=== PATIENT | male | born 1965 | race Caucasian/White ===

== ENCOUNTER 2019-10-24 15:43 | Observation (INO) | payer SELFPAY ==
[2019-10-24] VITALS (13 sets, daily range): BP systolic 124–164; BP diastolic 69–108; PULSE 70–115; RESP 13–22; TEMP 36.4–36.8; O2SAT 92–98; BMI 36.9
--- NOTE | 2019-10-24 15:59 | ECG_ITS ---
Measurements Intervals [place] Rate: 140 P: MT: 0 QRS: 74 QRSD: 90 T: 10 QT: 289 QTc: 442 POSSIBLE ATRIAL FLUTTER WITH RAPID VENTRICULAR RESPONSE No previous ECG available for comparison Electronically Signed On 10-24-2019 21:11:41 RN PARALEGAL by Laya De Dios M.D. [email or web address]
--- NOTE | 2019-10-24 16:00 | ED_ITS ---
Entered by Yanci Murillo, acting as scribe for Reza Jose DO HPI - Chest Pain General: Chief Complaint: Chest Pain Stated Complaint: cp Time Seen by Provider: 10/24/19 16:00 Source: patient Mode of arrival: ambulatory Limitations: no limitations History of Present Illness: HPI narrative: 54 yo male presents with fast heart rate. pt states this started 3 months ago but worsened last night. pt states he has had palpitations. pt denies any other symptoms at this time. MD complaint: chest pain Onset (ago): month(s) (3) Timing of current episode: constant and still present Prior episodes: No Onset: during rest Pain radiation: none Severity: mild Relieving factors: nothing Exacerbating factors: nothing Associated symptoms: Reports palpitations; Deny abdominal pain, dyspnea, fever(s), nausea or vomiting Treatment prior to arrival: none Review of Systems Const: Denies: fever, chills, body aches, change in appetite, fatigue or malaise ENMT: Denies: throat pain, ear pain, nasal discharge or nasal congestion Card: Reports: palpitations Resp: Denies: shortness of breath, productive cough or non-productive cough GI: Denies: abdominal pain, nausea, vomiting, vomiting blood, coffee grounds in vomit, diarrhea, constipation, bloating, blood in stool or black tarry stool : Denies: flank pain, painful urination, urinary frequency or urinary urgency Skin/Breast: Denies: rash or itching PFSH ED PFSH: Social History Smoking and tobacco status: former smoker Physical Exam Const: COMMON NORMALS: no apparent distress GENERAL APPEARANCE: cooperative and comfortable ORIENTATION/CONSCIOUSNESS: Yes awake, Yes oriented to person, Yes oriented to place and Yes oriented to time HENMT: COMMON NORMALS: normocephalic, head/scalp atraumatic, hearing grossly normal bilaterally, external ears normal, EAC's normal, TM's normal bilaterally, nasal mucous membranes and turbinates normal, moist oral mucous membranes and oropharynx normal HEAD & SCALP: normocephalic and atraumatic NOSE: nasal mucous membranes and turbinates normal EXTERNAL EAR: Yes external ears normal EXTERNAL AUDITORY CANAL: EAC's normal TYMPANIC MEMBRANE: TM's normal bilaterally Eye: COMMON NORMALS: PERRL, EOMs intact bilaterally, conjunctivae normal and no scleral icterus CONJUNCTIVA: Yes conjunctivae normal PUPIL: Yes PERRL Neck/C-Spine: COMMON NORMALS: full ROM, no lymphadenopathy, supple and no JVD Lymph: LYMPHATIC: no lymphadenopathy noted and no lymphedema noted Resp: COMMON NORMALS: normal respiratory effort, no retractions, no use of accessory muscles and clear to auscultation bilaterally AUSCULTATION: clear to auscultation bilaterally Cardio: COMMON NORMALS: no JVD GI: COMMON NORMALS: soft to palpation and no hepatosplenomegaly AUSCULTATION: Yes normoactive bowel sounds PALPATION: Yes soft, No tender, No guarding and Yes no hepatosplenomegaly Extremity: COMMON NORMALS: normal to inspection, normal capillary refill, no clubbing, cyanosis or edema, no calf tenderness and no pedal edema Neuro: SENSORIUM/ORIENTATION: Yes oriented to person, Yes oriented to place and Yes oriented to time Skin: COMMON NORMALS: no rashes or lesions noted GENERAL SKIN EXAM: no rashes or lesions noted Course ED course: Discussed with Dr. Leonard. Patient has new onset A. fib with rapid ventricular response. He is dependent on IV diltiazem now to control rate he is not yet converted. Organ to go ahead and admit him for rate control on the IV Cardizem further work-up and medication adjustments for the new onset A. fib. Vital Signs: Vital signs: Vital Signs Temperature 97.9 F 10/24/19 15:48 Pulse Rate 109 H 10/24/19 17:16 Respiratory Rate 14 10/24/19 17:16 Blood Pressure 124/69 10/24/19 17:16 Pulse Oximetry 97 10/24/19 17:16 MDM - Chest Pain Lab Data: Labs: Lab Results 10/24/19 10/24/19 10/24/19 Range/Units 16:08 16:08 16:08 WBC 8.8 (4.0-10.0) 10^3/ uL RBC 5.64 H (4.1-5.3) 10^6/u L Hgb 15.7 (11.7-16.6) g/dL Hct 46.6 (42.0-52.0) % MCV 82.6 (80-94) fL MCH 27.8 L (28.0-34.0) pg MCHC 33.7 (30.0-36.0) g/dL RDW 13.1 (12.1-15.1) % Plt Count 285 (130-400) 10^3/c mm MPV 10.0 (7.4-10.4) fL Neut % (Auto) 44.8 % Lymph % (Auto) 43.0 % [place] % (Auto) 9.5 % Eos % (Auto) 1.9 % Baso % (Auto) 0.5 % Neut # (Auto) 4.0 (1.8-7.7) 10^3/u L Lymph # (Auto) 3.8 (0.8-4.8) 10^3/u L [place] # (Auto) 0.8 (0.2-0.9) 10^3/u L Eos # (Auto) 0.2 (0.0-0.8) 10^3/u L Baso # (Auto) 0.0 (0.0-0.1) 10^3/u L Nucleated RBC % (a uto) 0 % Nucleated RBCs # 0.0 /100WBC PT 13.20 (10.5-13.3) SECO NDS INR 1.00 (0.8-1.2) APTT 24.9 (23.9-36.7) SECO NDS D-Dimer 0.10 (0-0.59) ug/mIFE U Sodium 139 (136-145) mmol/L Potassium 4.6 (3.5-5.1) mmol/L Chloride 102 (98-107) mmol/L Carbon Dioxide 22 (22-29) mmol/L Anion Gap 19.6 H (5-19) BUN 17 (6-20) mg/dL Creatinine 0.9 (0.7-1.2) mg/dL GFR Calculation 87.6 L (90-130) mL/min Glucose 148 H (65-115) mg/dL Calcium 10.4 (8.5-10.5) mg/dL Magnesium 2.1 (1.7-2.3) mg/dL Total Bilirubin 0.7 (0.15-1.2) mg/dL AST 23 (0-40) U/L ALT 27 (0-41) U/L Alkaline Phosphata se 66 (40-130) IU/L Troponin T Baselin e (0-15) ng/mL Total Protein 7.2 (6.6-8.7) g/dL Albumin 4.4 (3.5-5.2) g/dL Globulin 2.8 (1.3-4.6) g/dL TSH 1.60 (0.27-4.20) uIU/ mL 10/24/19 Range/Units 16:08 WBC (4.0-10.0) 10^3/ uL RBC (4.1-5.3) 10^6/u L Hgb (11.7-16.6) g/dL Hct (42.0-52.0) % MCV (80-94) fL MCH (28.0-34.0) pg MCHC (30.0-36.0) g/dL RDW (12.1-15.1) % Plt Count (130-400) 10^3/c mm MPV (7.4-10.4) fL Neut % (Auto) % Lymph % (Auto) % [place] % (Auto) % Eos % (Auto) % Baso % (Auto) % Neut # (Auto) (1.8-7.7) 10^3/u L Lymph # (Auto) (0.8-4.8) 10^3/u L [place] # (Auto) (0.2-0.9) 10^3/u L Eos # (Auto) (0.0-0.8) 10^3/u L Baso # (Auto) (0.0-0.1) 10^3/u L Nucleated RBC % (a uto) % Nucleated RBCs # /100WBC PT (10.5-13.3) SECO NDS INR (0.8-1.2) APTT (23.9-36.7) SECO NDS D-Dimer (0-0.59) ug/mIFE U Sodium (136-145) mmol/L Potassium (3.5-5.1) mmol/L Chloride (98-107) mmol/L Carbon Dioxide (22-29) mmol/L Anion Gap (5-19) BUN (6-20) mg/dL Creatinine (0.7-1.2) mg/dL GFR Calculation (90-130) mL/min Glucose (65-115) mg/dL Calcium (8.5-10.5) mg/dL Magnesium (1.7-2.3) mg/dL Total Bilirubin (0.15-1.2) mg/dL AST (0-40) U/L ALT (0-41) U/L Alkaline Phosphata se (40-130) IU/L Troponin T Baselin e 14 (0-15) ng/mL Total Protein (6.6-8.7) g/dL Albumin (3.5-5.2) g/dL Globulin (1.3-4.6) g/dL TSH (0.27-4.20) uIU/ mL Imaging Data^: CXR: Radiologist's impression: [address] [address] XRay Report Signed Patient: Mina Silva #: [id number] : 1965Acct#:[id number] Age/Sex: 54 / MADM Date: 10/24/19 Loc: ERRoom/Bed: Attending Dr: Ordering Provider/Ordering MD: Vaughn Ingram NP Date of Service: 10/24/19 Procedure(s): XR chest 1V portable 40616 Accession Number(s): [id number] Report Number: [id number] PROCEDURE INFORMATION: Exam: XR Chest, 1 View Exam date and time: 10/24/2019 4:00 PM Age: 54 years old Clinical indication: Chest pain; Type not specified; Additional info: Cp TECHNIQUE: Imaging protocol: XR of the chest Views: 1 view. COMPARISON: No relevant prior studies available. FINDINGS: Lungs: Unremarkable. No consolidation. Punctate calcified granulomas and mild basilar fibrosis versus volume loss with vascular crowding is noted. The vascularity is within normal limits. Pleural space: Unremarkable. No pleural effusion. No pneumothorax. Heart/Mediastinum: There is cardiomegaly. Bones/joints: No acute abnormality. XR/XR chest 1V portable [id number] IMPRESSION: No acute findings. Dictated By:Katelynn Leyva Signed By:Aubrey Leyva Date/Time:10/24/19 8062 Discharge Plan Discharge Prescriptions: No Action pioglitazone 15 mg tablet 15 mg PO DAILY RF: 0 atorvastatin 20 mg tablet 20 mg PO DAILY RF: 0 metformin 1,000 mg tablet 1,000 mg PO BID RF: 0 glimepiride 4 mg tablet 4 mg PO BID RF: 0 lorazepam 1 mg tablet 1 mg PO TID PRN (Reason: Anxiety) RF: 0 Coding Level of Care Code ED Hot Roll Laminator for Chg Fwd Exam Comprehensive The documentation recorded by the Chidi sneed Bridget Annette, accurately reflects the service I personally performed and the decisions made by Rebeca little Curtis L, Oct 24, 2019 15:43
[2019-10-24 16:25] LABS: Basophils % 0.5 %; Eosinophils # 0.2 10^3/uL (0.0-0.8); Eosinophils % 1.9 %; Hematocrit 46.6 % (42.0-52.0); Hemoglobin 15.7 g/dL (11.7-16.6); Lymphocytes # 3.8 10^3/uL (0.8-4.8); Mean Corpuscular HGB Conc 33.7 g/dL (30.0-36.0); Mean Corpuscular Hemoglobin 27.8 pg (28.0-34.0); Mean Corpuscular Volume 82.6 fL (80-94); Monocytes # 0.8 10^3/uL (0.2-0.9); Monocytes % 9.5 %; Neutrophils % 44.8 %; Nucleated Red Blood Cells % 0 %; Platelet Count 285 10^3/cmm (130-400); Red Blood Count 5.64 10^6/uL (4.1-5.3); Red Cell Distribution Width 13.1 % (12.1-15.1); White Blood Count 8.8 10^3/uL (4.0-10.0)
[2019-10-24 16:40] LABS: Troponin(5th) Baseline 14 ng/mL (0-15)
[2019-10-24 16:47] LABS: Alanine Aminotransferase 27 U/L (0-41); Albumin Level 4.4 g/dL (3.5-5.2); Alkaline Phosphatase 66 IU/L (40-130); Anion Gap 19.6 (5-19); Aspartate Amino Transferase 23 U/L (0-40); Blood Urea Nitrogen 17 mg/dL (6-20); Calcium 10.4 mg/dL (8.5-10.5); Carbon Dioxide 22 mmol/L (22-29); Chloride 102 mmol/L (98-107); Globulin 2.8 g/dL (1.3-4.6); Glomerular Filtration Rate 87.6 mL/min (90-130); Glucose 148 mg/dL (65-115); Magnesium 2.1 mg/dL (1.7-2.3); Potassium 4.6 mmol/L (3.5-5.1); Sodium 139 mmol/L (136-145); Total Bilirubin 0.7 mg/dL (0.15-1.2); Total Protein 7.2 g/dL (6.6-8.7)
[2019-10-24 16:48] LABS: Partial Thromboplastin Time 24.9 SECONDS (23.9-36.7)
[2019-10-24 18:32] LABS: Troponin 5 2HR 14.91 ng/mL (0-15); Troponin 5 2HR Delta 0.91 ABS# (0-10)
--- NOTE | 2019-10-24 18:38 | P.HP_ITS ---
Providers/Chief Complaint Admitting Physician: Nataliia Leonard MD Primary Care Provider: Jacqueline Shira Chief Complaint: palpitations, chest pressure History of Present Illness Mina Silva is a 54 year old male with PMHx of NIDDM type II, Morbid obesity, Hyperlipidemia, presents with complaints of ongoing palpitations and chest pressure for the past 2 months. Patient states that he has had once but has noticed this more frequently over the past 2 months with increased palpitations and chest pressure. He has also noticed that his episodes are lasting longer, about 3 to 4 hours at a time and are occurring more frequently. Episodes will typically spontaneously resolve. He has no prior diagnosis of arrhythmia including A. fib. He has some chronic shortness of breath with exertion which he attributes to his weight. He denies any diaphoresis, syncope, increased lower extremity edema, nausea/vomiting, cough, fever/chills, abdominal pain, changes in his urination or bowel habits. He is not insulin-dependent. Has had prior treadmill stress testing which was negative in 2012. In between his episodes he is typically asymptomatic. He was found to be in A. fib with RVR on evaluation in the ER with heart rates in the 140 range. He received a 20 mg bolus of Cardizem and drip is currently running at 10 mg/hr. He feels much better and his heart rate is in the 70s though rhythm remains irregular. Labs are unremarkable including CBC, chemistry, troponin, TSH, noted blood sugar of 148. Chest x-ray is negative. EKG is reporeted as atrial flutter with heart rate in the 140s. He will be admitted to ICU as a CSU overflow at this time for continued Cardizem drip. I discussed initiation of oral Cardizem to try to wean him off the drip and potential need for anticoagulation depending on echo results. He is agreeable to care plan. Review of Systems Const: Denies: fever, chills, change in appetite or fatigue Eyes: Denies: change in vision ENMT: Denies: painful swallowing or dry mouth Card: Reports: palpitations, shortness of breath on exertion and other (chest pressure); Denies: chest pain, swelling of feet/ankles, lightheadedness or syncope Resp: Denies: shortness of breath GI: Denies: abdominal pain, nausea, vomiting, vomiting blood or blood in stool : Denies: painful urination, urinary frequency or blood in urine Musc: Denies: back pain Skin/Breast: Denies: rash Neuro: Denies: numbness in extremities or weakness in extremities Psych: Denies: anxiety Medications/Allergies Home Medications Medication Instructions Recorded Confirmed Last Taken Type atorvastatin 20 mg PO DAILY 10/24/19 10/24/19 10/23/19 History glimepiride 4 mg PO BID 10/24/19 10/24/19 10/24/19 History lorazepam 1 mg PO TID PRN 10/24/19 10/24/19 Unknown History metformin 1,000 mg PO BID 10/24/19 10/24/19 10/24/19 History pioglitazone 15 mg PO DAILY 10/24/19 10/24/19 10/24/19 History Allergies Allergy/AdvReac Type Severity Reaction Status Date / Time Penicillins Allergy ADR-Itching Verified 10/24/19 15:52 PFSH Acute PFSH: Medical History HTN (hypertension) Hyperlipidemia Morbid obesity Surgical History H/O eye surgery done in childhood History of left hip replacement Family History (Updated 10/24/19 @ 18:49 by Nataliia Leonard MD) Mother CAD (coronary artery disease) Father Atrial fibrillation multiple family members on paternal side Social History (Updated 10/24/19 @ 18:49 by Nataliia Leonard MD) Smoking and tobacco status: former smoker Quit status (tobacco): has quit using tobacco Year quit tobacco: 01/2018 Alcohol intake: current Alcohol intake frequency: holidays/special occasions only Substance/Drug Use: never Vitals/I&O/Wt Last Vital Signs Temp 97.9 F 10/24/19 15:48 Pulse 76 10/24/19 18:00 Resp 15 10/24/19 18:00 BP 124/75 10/24/19 18:00 Pulse Ox 98 10/24/19 18:00 10/24/19 10/24/19 10/24/19 06:59 14:59 22:59 Intake Total 1.333 / 1.333 Balance 1.333 / 1.333 Weight last 48 hrs Weight 127.006 kg Physical Exam Const: COMMON NORMALS: no apparent distress and oriented x3 GENERAL APPEARANCE: cooperative and comfortable; not in distress and not ill appearing NUTRITIONAL APPEARANCE: obese morbidly obese ORIENTATION/CONSCIOUSNESS: Yes awake HENMT: COMMON NORMALS: normocephalic, head/scalp atraumatic, hearing grossly normal bilaterally and moist oral mucous membranes HEAD & SCALP: normocephalic and atraumatic Eye: COMMON NORMALS: PERRL, EOMs intact bilaterally and conjunctivae normal CONJUNCTIVA: Yes conjunctivae normal PUPIL: Yes PERRL Neck/C-Spine: COMMON NORMALS: full ROM GENERAL: Yes normal visual inspection and Yes trachea midline Resp: COMMON NORMALS: normal respiratory effort, no retractions, no use of accessory muscles and clear to auscultation bilaterally EFFORT & INSPECTION: Yes able to speak in complete sentences, Yes symmetric chest movement and No tachypneic AUSCULTATION: clear to auscultation bilaterally Cardio: COMMON NORMALS: regular rate, regular rhythm, S1 normal heart sound, S2 normal heart sound and no murmurs RATE: regular rate RHYTHM: abnormal rhythm irregularly irregular HEART SOUNDS: S1 normal and S2 normal GI: COMMON NORMALS: normal to inspection, nondistended, normoactive bowel marcia nds, soft to palpation and non-tender INSPECTION: Yes central obesity PALPATION: Yes soft Extremity: COMMON NORMALS: normal to inspection, full ROM and no clubbing, cyanosis or edema; negative for no pedal edema Neuro: COMMON NORMALS: oriented x3, moves all extremities, no focal motor deficits and no sensory deficits noted Psych: COMMON NORMALS: mental status grossly normal, thought process normal, cooperative, affect normal and speech normal SPEECH: Yes normal speech THOUGHT PROCESS: normal thought process Skin: COMMON NORMALS: no rashes or lesions noted, no jaundice, no petechiae and no mottling GENERAL SKIN EXAM: no rashes or lesions noted Data : 10/24/19 16:08 10/24/19 16:08 A&P Assessment and plan (1) Atrial fibrillation with RVR: -new onset, symptomatic as reported by patient (palpitations, chest pressure) -rate controlled currently though rhythm still irregular -on Cardizem drip, received 20 mg bolus -telemetry monitoring -seems to have responded well to cardizem so will start on oral as well to wean off drip -Echo ordered, no baseline on record -may need anticoagulation but will wait on Echo -K, TSH wnl, check Mg -had negative treadmill stress test in 2013 Status: Acute Code(s): I48.91 - Unspecified atrial fibrillation (2) Non-insulin dependent type 2 diabetes mellitus: -check A1c in AM -Accuchecks, ISS, hypoglycemia precautions -hold metformin, pioglitazone, glimepiride -diabetic diet as tolerated Status: Acute Code(s): E11.9 - Type 2 diabetes mellitus without complications (3) Hyperlipidemia: -check lipid panel in AM -resume statin Status: Acute Qualifiers: Hyperlipidemia type: unspecified Qualified Code(s): E78.5 - Hyperlipidemia, unspecified Code(s): E78.5 - Hyperlipidemia, unspecified (4) Morbid obesity: -BMI-37 kg/m2 Status: Acute Code(s): E66.01 - Morbid (severe) obesity due to excess calories Additional A&P Information -DVT ppx with Lovenox -Dispo: home -Code status: FULL code -CSU overflow Attestations Medical Necessity Statement*: Mina Silva's hospital stay will be less than 2 midnights for management of new onset atrial fibrillation, currently on cardizem drip. Time Spent in Patient Care: Greater than 35 minutes (>than 50% of time spe nt in counselling and/or direct pt care on unit) . Coding Level of Care Code Acute Childcare Center Administrator for Jose Whatley Diagnoses Atrial fibrillation with RVR I48.91 Non-insulin dependent type 2 diabetes mellitus E11.9 Hyperlipidemia E78.5 Hyperlipidemia type: unspecified Morbid obesity E66.01
--- NOTE | 2019-10-24 18:39 | USCV_ITS ---
Mina Silva Age: 54 Gender: M : 1965 Exam Date: 10/24/2019 19:27 Ordering Phys: Nataliia Leonard MD Technologist: Lacy Tellez [place] [facility] [place]: afib BP: 164 / 97 HR: 74 Rhythm: Sinus Technical Quality: Adequate MEASUREMENTS (Male / Female) Normal Values 2D ECHO LV Diastolic Diameter PLAX 2.5 cm 4.2 - 5.9 / 3.9 - 5.3 cm LV Systolic Diameter PLAX 2.1 cm LV Chamber Size 4.2 cm IVS Diastolic Thickness 1.7 cm 0.6 - 1.0 / 0.6 - 0.9 cm IVS Systolic Thickness 2.2 cm LVPW Diastolic Thickness 2.1 cm 0.6 - 1.0 / 0.6 - 0.9 cm LVPW Systolic Thickness 2.6 cm RV Chamber Size 2.5 cm LVOT Diameter 2.1 cm LV Ejection Fraction 2D Teich 36.0 % LV Ejection Fraction MOD 2C 62.0 % LV Ejection Fraction 2C AL 63.4 % LA Diameter 4.6 cm LA Width 3.2 cm LA Height 5.9 cm RA Width 2.7 cm RA Height 5.0 cm Aorta at Sinotubular Diameter 3.2 cm M-MODE LV Diastolic Diameter MM 5.2 cm 4.2 - 5.9 / 3.9 - 5.3 cm LV Systolic Diameter MM 3.2 cm LV Ejection Fraction MM Teich 67.5 % IVS Diastolic Thickness MM 0.9 cm 0.6 - 1.0 / 0.6 - 0.9 cm IVS Systolic Thickness MM 1.1 cm LVPW Diastolic Thickness MM 1.1 cm 0.6 - 1.0 / 0.6 - 0.9 cm LVPW Systolic Thickness MM 1.3 cm Aortic Annulus Diameter 3.4 cm LA Ao Ratio MM 1.4 MV E Point Septal Separation 0.7 cm DOPPLER AV Peak Velocity 215.0 cm/s LVOT Peak Velocity 140.0 cm/s AV Area Cont Eq vti 2.5 cm squared AV Area Cont Eq pk 2.2 cm squared MV Area PHT 3.1 cm squared Mitral E to A Ratio 2.0 MV E' Velocity 12.0 cm/s Mitral E to MV E' Ratio 8.2 Mitral E to LV E' Lateral Ratio 8.3 Mitral E to LV E' Septal Ratio 8.1 TR Peak Velocity 235.0 cm/s TR Peak Gradient 22.1 mmHg TV Peak E Velocity 76.0 cm/s Right Atrial Pressure 3.0 mmHg Pulmonary Artery Systolic Pressu 25.1 mmHg PV Peak Velocity 77.0 cm/s RV Acceleration Time 0.2 s RV Ejection Time 0.3 s RV AcT/ET 0.6 FINDINGS Left Ventricle Normal left ventricular size and systolic function, EF 63 %. No regional wall motion abnormalities. Moderate left ventricular hypertrophy. Right Ventricle Possibly of normal size and ejection fraction Right Atrium Could not be visualized well Left Atrium Mildly dilated Mitral Valve No gross abnormalities noted Aortic Valve No gross abnormalities noted Tricuspid Valve Not visualized well.trace tricuspid valve regurgitation. Pulmonic Valve Not visualized well Pericardium Normal pericardium without effusion. Aorta Normal ascending aorta dimension. CONCLUSIONS Normal left ventricular size and systolic function, EF 63 %. No regional wall motion abnormalities. Moderate left ventricular hypertrophy. Mildly dilated left atrium No pericardial effusion Trace of tricuspid regurgitation Possibly normal pulmonary artery peak systolic pressure Technically difficult study because of the poor ultrasonic window. Dr Maddi Nation MD FACC (Electronically Signed) Final Date: 25 October 2019 13:21 S
[2019-10-24 18:50] LABS: Glucose Point of Care 95 mg/dL (70-110)
[2019-10-24] MEDS: dilTIAZem 60 mg Tablet PO (19:37)
[2019-10-24] MEDS: enoxaparin 40 mg/0.4 mL Syringe SUBCUT (19:37)
[2019-10-24] MEDS: atorvastatin 40 mg Tablet 20 MG PO (21:03)
[2019-10-24] MEDS: acetaminophen 325 mg Tablet 650 MG PO (21:04)
[2019-10-24] MEDS: LORazepam 1 mg Tablet PO (21:04)
[2019-10-24 22:17] LABS: Troponin 5 6HR 17.67 ng/mL (0-15); Troponin 5 6HR Delta 3.67 ng/L (0-12)
[2019-10-25] VITALS (10 sets, daily range): BP systolic 101–138; BP diastolic 53–90; PULSE 56–73; RESP 12–25; TEMP 36.9–37.2; O2SAT 92–97
[2019-10-25 00:18] LABS: Glucose Point of Care 180 mg/dL (70-110)
[2019-10-25] MEDS: dilTIAZem 60 mg Tablet PO ×3 (00:46→12:29)
[2019-10-25 04:19] LABS: Estmated Average Glucose 169; Hemoglobin A1C 7.5 % (4.0-6.0)
[2019-10-25 04:40] LABS: Anion Gap 15.2 (5-19); Blood Urea Nitrogen 18 mg/dL (6-20); Calcium 9.5 mg/dL (8.5-10.5); Carbon Dioxide 26 mmol/L (22-29); Chloride 101 mmol/L (98-107); Glomerular Filtration Rate 100.4 mL/min (90-130); Glucose 162 mg/dL (65-115); Osmolality Calculated 286 mOsm/kg (285-295); Potassium 4.2 mmol/L (3.5-5.1); Sodium 138 mmol/L (136-145)
[2019-10-25 04:41] LABS: Chol HDL Ratio 3.23 mg/dL (1.0-5.00); Cholesterol 152 mg/dL (0-200); HDL Cholesterol 47 mg/dL (60-100); LDL Cholesterol Calculated 68 mg/dL (50-129); LDL HDL Ratio 1.45 RATIO (0.00-3.22); Magnesium 2.1 mg/dL (1.7-2.3); Triglycerides 183 mg/dL (0-150)
--- NOTE | 2019-10-25 10:17 | PC.CHAP ---
Pastoral Care Encounter/Spiritual Assessment Type of Contact [] Declined conference manager visit [] Patient/Family/Request visit [] Outpatient visit [] Follow-up visit [] Physician referral [] Code/Alert [x] Routine visit [] Staff referral [] Actively dying [] Patient sleeping [] Family support [] [] Out of room [] Palliative care [] [] Receiving care in room [] Pre-surgical visit [] Trauma [] Long length of stay [x] ICU visit [] Other: Relational/Emotional Strength [] Patient feels connected with others/family/visitors/staff [] Distress [] Loneliness/isolation [] Abandonment Spirituality of Patient [x] Person of Tonie [x] Attends Christian of their Tonie [x] Believes in Prayer [x] Reads Bible or Confucianism materials [] There are Spiritual issues to be addressed Director Medical Surgical Interventions [x] Prayer [] Active listening [] Non-anxious presence [] Spiritual/emotional support [] Crisis/trauma care [] Spiritual counseling [] Bereavement support [] Provided bereavement packet [] Provided Bible/devotional materials [] Provided toy/stuffed animal, coloring book to patient or family member [] Provided Communion [] Anointing/[place] [] Salvation [x] Completed spiritual assessment [] Other: Impact on Illness or Injury [] Angry [] Fearful [] Anxious [] Often cries [] Exhaustion [] Unable to work [] Unable to attend anabaptism [] Unable to walk/stand [] Unable to read [] Unable to drive [] Unable to eat/drink [] Unable to sleep [] Unable to be with family [] Patient intubated [] Other: Summary Patient realizes needs to make some physical changes in live style. More exercise, to bring weight down. Time spent with patient 20 min
[2019-10-25 11:14] LABS: Glucose Point of Care 198 mg/dL (70-110)
[2019-10-25 11:35] LABS: Glucose Point of Care 221 mg/dL (70-110)
--- NOTE | 2019-10-25 14:02 | PM.DCS ---
Discharge Providers Date of Admission: 10/24/19 17:10 Date of Discharge: October 25, 2019 Attending Provider at Admission: Nataliia Leonard MD Attending Provider at Discharge: Nataliia Leonard MD Primary Care Provider: Lukas Goyal DO Diagnoses at Discharge Discharge Diagnosis (1) Atrial fibrillation with RVR: Status: Resolved Problem details: -new onset, symptomatic as reported by patient (palpitations, chest pressure) -rate controlled currently and converted to NSR overnight -off Cardizem drip, received 20 mg bolus -telemetry monitoring -seems to have responded well to cardizem so will start on oral as well to wean off drip -Echo: EF=60%, no RWMA, moderate LVH, trace TR, mildly dilated LA, no baseline on record -[id number] score of 1 for DM; discussed anticoagulation vs. aspirin and patient chose aspirin -K, TSH, Mg wnl -had negative treadmill stress test in 2012 (2) Non-insulin dependent type 2 diabetes mellitus: Status: Chronic Problem details: -A1c-7.5 -Accuchecks, ISS, hypoglycemia precautions -hold metformin, pioglitazone, glimepiride -diabetic diet as tolerated (3) Hyperlipidemia: Status: Chronic Problem details: -noted lipid panel -continue statin Qualifiers: Hyperlipidemia type: unspecified Qualified Code(s): E78.5 - Hyperlipidemia, unspecified (4) Morbid obesity: Status: Chronic Problem details: -BMI-37 kg/m2 Reason for Visit Reason for Visit: Reason For Visit: palpitations, chest pressure Hospital Course Hospital Course: Patient was admitted to ICU as CSU overflow and continued on cardizem drip that had been started in ED given atrial fibrillation with RVR. He converted to sinus rhythm overnight and has remained regular and rate controlled with discontinuation of cardizem drip. He has been started on oral cardizem which he seems to be tolerating well. Echo has been done as reported above. [id number] score is 1 given hx of DM and we have discussed anticoagulation vs. aspirin as options; he has chosen aspirin which is prescribed. He has been hemodynamically stable, afebrile, ambulatory, tolerating oral intake without difficulty and is now asymptomatic. He likely has RAFFY so I have requested sleep study on discharge for further evaluation. He will need follow up with primary care provider. He is advised to seek medical attention immediately if symptoms return. Discharge Summary: -Patient to follow up with primary care provider within 1 week. Physical Exam Const: COMMON NORMALS: no apparent distress and oriented x3 GENERAL APPEARANCE: cooperative and comfortable; not in distress and not ill appearing NUTRITIONAL APPEARANCE: obese morbidly obese ORIENTATION/CONSCIOUSNESS: Yes awake HENMT: COMMON NORMALS: normocephalic, head/scalp atraumatic, hearing grossly normal bilaterally and moist oral mucous membranes HEAD & SCALP: normocephalic and atraumatic Eye: COMMON NORMALS: PERRL, EOMs intact bilaterally and conjunctivae normal CONJUNCTIVA: Yes conjunctivae normal PUPIL: Yes PERRL Neck/C-Spine: COMMON NORMALS: full ROM GENERAL: Yes normal visual inspection and Yes trachea midline Resp: COMMON NORMALS: normal respiratory effort, no retractions, no use of accessory muscles and clear to auscultation bilaterally EFFORT & INSPECTION: Yes able to speak in complete sentences, Yes symmetric chest movement and No tachypneic AUSCULTATION: clear to auscultation bilaterally Cardio: COMMON NORMALS: regular rate, regular rhythm, S1 normal heart sound, S2 normal heart sound and no murmurs RATE: regular rate RHYTHM: regular rhythm HEART SOUNDS: S1 normal and S2 normal GI: COMMON NORMALS: normal to inspection, nondistended, normoactive bowel sounds, soft to palpation and non-tender INSPECTION: Yes central obesity PALPATION: Yes soft Extremity: COMMON NORMALS: normal to inspection, full ROM and no clubbing, cyanosis or edema; negative for no pedal edema Neuro: COMMON NORMALS: oriented x3, moves all extremities, no focal motor deficits and no sensory deficits noted Psych: COMMON NORMALS: mental status grossly normal, thought process normal, cooperative, affect normal and speech normal SPEECH: Yes normal speech THOUGHT PROCESS: normal thought process Skin: COMMON NORMALS: no rashes or lesions noted, no jaundice, no petechiae and no mottling GENERAL SKIN EXAM: no rashes or lesions noted Discharge Data Data Completed and Pending: Completed Studies During Hospitalization Category Date Time Status XR chest 1V john ble [id number] Stat Exams 10/24/19 15:59 Completed CV echo complete* [id number] Routine Ultrasound 10/24/19 18:39 Completed Labs from last 24 hours 10/25/19 10/25/19 10/25/19 11:28 08:05 03:46 WBC RBC Hgb Hct MCV MCH MCHC RDW Plt Count MPV Neut % (Auto) Lymph % (Auto) [place] % (Auto) Eos % (Auto) Baso % (Auto) Neut # (Auto) Lymph # (Auto) Sutton # (Auto) Eos # (Auto) Baso # (Auto) Nucleated RBC % (a uto) Nucleated RBCs # PT INR APTT D-Dimer Sodium Potassium Chloride Carbon Dioxide Anion Gap BUN Creatinine GFR Calculation Glucose POC Glucose 221 198 Estimat Average Gl ucose Hemoglobin A1c Calculated Osmolal ity Calcium Magnesium Total Bilirubin AST ALT Alkaline Phosphata se Troponin I 6 Hour Troponin I Hi Sens Del Troponin T Baselin e Troponin T 120 Min [place] Troponin T Total Protein Albumin Globulin Triglycerides 183 H Cholesterol 152 LDL Cholesterol, C alc 68 HDL Cholesterol 47 L LDL/HDL Ratio 1.45 Cholesterol/HDL Ra wes 3.23 TSH 10/25/19 10/25/19 10/25/19 03:46 03:46 03:46 WBC RBC Hgb Hct MCV MCH MCHC RDW Plt Count MPV Neut % (Auto) Lymph % (Auto) Sutton % (Auto) Eos % (Auto) Baso % (Auto) Neut # (Auto) Lymph # (Auto) Sutton # (Auto) Eos # (Auto) Baso # (Auto) Nucleated RBC % (a uto) Nucleated RBCs # PT INR APTT D-Dimer Sodium 138 Potassium 4.2 Chloride 101 Carbon Dioxide 26 Anion Gap 15.2 BUN 18 Creatinine 0.8 GFR Calculation 100.4 Glucose 162 H POC Glucose Estimat Average Gl ucose 169 Hemoglobin A1c 7.5 H Calculated Osmolal ity 286 Calcium 9.5 Magnesium 2.1 Total Bilirubin AST ALT Alkaline Phosphata se Troponin I 6 Hour Troponin I Hi Sens Del Troponin T Baselin e Troponin T 120 Min [place] Troponin T Total Protein Albumin Globulin Triglycerides Cholesterol LDL Cholesterol, C alc HDL Cholesterol LDL/HDL Ratio Cholesterol/HDL Ra wes TSH 10/24/19 10/24/19 10/24/19 21:54 21:00 18:46 WBC RBC Hgb Hct MCV MCH MCHC RDW Plt Count MPV Neut % (Auto) Lymph % (Auto) Sutton % (Auto) Eos % (Auto) Baso % (Auto) Neut # (Auto) Lymph # (Auto) Sutton # (Auto) Eos # (Auto) Baso # (Auto) Nucleated RBC % (a uto) Nucleated RBCs # PT INR APTT D-Dimer Sodium Potassium Chloride Carbon Dioxide Anion Gap BUN Creatinine GFR Calculation Glucose POC Glucose 180 95 Estimat Average Gl ucose Hemoglobin A1c Calculated Osmolal ity Calcium Magnesium Total Bilirubin AST ALT Alkaline Phosphata se Troponin I 6 Hour 17.67 H Troponin I Hi Sens Del 3.67 Troponin T Baselin e Troponin T 120 Min [place] Troponin T Total Protein Albumin Globulin Triglycerides Cholesterol LDL Cholesterol, C alc HDL Cholesterol LDL/HDL Ratio Cholesterol/HDL Ra wes TSH 10/24/19 10/24/19 10/24/19 18:07 16:08 16:08 WBC RBC Hgb Hct MCV MCH MCHC RDW Plt Count MPV Neut % (Auto) Lymph % (Auto) Sutton % (Auto) Eos % (Auto) Baso % (Auto) Neut # (Auto) Lymph # (Auto) Sutton # (Auto) Eos # (Auto) Baso # (Auto) Nucleated RBC % (a uto) Nucleated RBCs # PT INR APTT D-Dimer Sodium 139 Potassium 4.6 Chloride 102 Carbon Dioxide 22 Anion Gap 19.6 H BUN 17 Creatinine 0.9 GFR Calculation 87.6 L Glucose 148 H POC Glucose Estimat Average Gl ucose Hemoglobin A1c Calculated Osmolal ity Calcium 10.4 Magnesium 2.1 Total Bilirubin 0.7 AST 23 ALT 27 Alkaline Phosphata se 66 Troponin I 6 Hour Troponin I Hi Sens Del Troponin T Baselin e 14 Troponin T 120 Min [place] 14.91 Delta Troponin T 0.91 Total Protein 7.2 Albumin 4.4 Globulin 2.8 Triglycerides Cholesterol LDL Cholesterol, C alc HDL Cholesterol LDL/HDL Ratio Cholesterol/HDL Ra wes TSH 1.60 10/24/19 10/24/19 16:08 16:08 WBC 8.8 RBC 5.64 H Hgb 15.7 Hct 46.6 MCV 82.6 MCH 27.8 L MCHC 33.7 RDW 13.1 Plt Count 285 MPV 10.0 Neut % (Auto) 44.8 Lymph % (Auto) 43.0 Sutton % (Auto) 9.5 Eos % (Auto) 1.9 Baso % (Auto) 0.5 Neut # (Auto) 4.0 Lymph # (Auto) 3.8 Sutton # (Auto) 0.8 Eos # (Auto) 0.2 Baso # (Auto) 0.0 Nucleated RBC % (a uto) 0 Nucleated RBCs # 0.0 PT 13.20 INR 1.00 APTT 24.9 D-Dimer 0.10 Sodium Potassium Chloride Carbon Dioxide Anion Gap BUN Creatinine GFR Calculation Glucose POC Glucose Estimat Average Gl ucose Hemoglobin A1c Calculated Osmolal ity Calcium Magnesium Total Bilirubin AST ALT Alkaline Phosphata se Troponin I 6 Hour Troponin I Hi Sens Del Troponin T Baselin e Troponin T 120 Min [place] Troponin T Total Protein Albumin Globulin Triglycerides Cholesterol LDL Cholesterol, C alc HDL Cholesterol LDL/HDL Ratio Cholesterol/HDL Ra wes TSH Vitals: Last Vital Signs Temp 99 F 10/25/19 08:00 Pulse 66 10/25/19 10:00 Resp 18 10/25/19 10:00 BP 120/79 10/25/19 10:00 Pulse Ox 92 10/25/19 10:00 Discharge Plan Discharge Patient Disposition: Home, Self-Care Condition: Stable Prescriptions: New diltiazem HCl [Cardizem CD] 240 mg capsule,extended release 24hr 240 mg PO DAILY 30 Days Qty: 30 RF: 0 aspirin 81 mg tablet,delayed release (DR/EC) 81 mg PO DAILY 30 Days Qty: 30 RF: 0 Continued pioglitazone 15 mg tablet 15 mg PO DAILY RF: 0 atorvastatin 20 mg tablet 20 mg PO DAILY RF: 0 metformin 1,000 mg tablet 1,000 mg PO BID RF: 0 glimepiride 4 mg tablet 4 mg PO BID RF: 0 lorazepam 1 mg tablet 1 mg PO TID PRN (Reason: Anxiety) RF: 0 Discharge Orders: Discharge Order (Routine); Ordered 10/25/19 Ordered By: Nataliia Leonard Other Ambulatory Orders: Sleep Study W Sleep Stage (Routine) Timeframe: 1 Week Location: None Selected Ordered By: Nataliia Leonard Referrals: Jacqueline Silva [Referring] - 4-7 days (Patient has new onset atrial fibrillation, has been started on Cardizem and ASA, [id number] score is 1 and he has chosen ASA vs. therapeutic anticoagulation. Echo is normal. ) Discharge Diet: Diabetic Discharge Activity: Resume usual activity Discharge Attestations Time Spent in Discharge Care*: greater than 30 min Specific Discharge Activities: Specific discharge activities: educating patient, discussing with shelter case manager/social workers/dc planners, documenting/other paperwork and evaluating patient/reviewing data Status at Discharge: Cognitive status at discharge: cognitively intact, Behavioral status at discharge: cooperative, Functional status at discharge: independent ambulation Overall status at discharge: patient is back to baseline Quality Metrics Clinical Quality Measures During this hospital stay, did patient experience: None Coding Level of Care Code Acute Jewel Inspector for g Fwd Diagnoses Atrial fibrillation with RVR I48.91 Non-insulin dependent type 2 diabetes mellitus E11.9 Hyperlipidemia E78.5 Hyperlipidemia type: unspecified Morbid obesity E66.01
== END 2019-10-25 14:38 | disposition home or self-care (01) ==
LOC: ER 16:03 → ICU 17:48
PROVIDERS: Nurse Practitioner Family; Admitting Provider Family Medicine; Emergency Provider Family Medicine; Visit Provider Family Medicine
DX: I48.91 Unspecified atrial fibrillation (principal); E11.9 Type 2 diabetes mellitus without complications; E78.5 Hyperlipidemia, unspecified; E66.01 Morbid (severe) obesity due to excess calories; Z68.37 Body mass index [BMI] 37.0-37.9, adult; I10 Essential (primary) hypertension; Z82.49 Family history of ischemic heart disease and other diseases of the circulatory system; Z87.891 Personal history of nicotine dependence
CPT/HCPCS: 12345; 36415; 36416; 71045; 80048; 80053; 80061; 82962; 83036; 83735; 84443; 84484; 85025; 85378; 85610; 85730; 93005; 93306; 96365; 96366; 96372; 96375; 99283; 99291; G0378; J1650; J1815; J3490

== ENCOUNTER 2020-03-26 06:50 | Outpatient (CLI) | payer BC, SELFPAY ==
--- NOTE | 2020-03-26 07:15 | ECG_ITS ---
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 Interpretive Statements NAME OF STUDY: LEXISCAN SESTAMIBI STRESS TEST INDICATION: Chest Pain PROCEDURE: At the baseline, the blood pressure was 160/89 mmHg, oxygen saturation 95% with a heart rate of 68 bpm. The electrocardiogram showed normal sinus rhythm, normal axis with poor anterior R wave progression. The Lexiscan was infused over a period of 20 seconds. A total of 0.4 milligrams of Lexiscan was infused. The stress phase was continued for a total of 5 minutes. Heart rate at the end of the stress phase was 75 bpm, oxygen saturation 95% with a blood pressure of 146/73 mmHg. The EKG at the peak infusion revealed sinus rhythm with no significant ST-T wave changes. Sestamibi was injected 20 seconds after the Lexiscan infusion. Blood pressure at the end of the recovery phase was 150/78 mmHg, oxygen saturation 93% with a heart rate of 76 beats per minute. CONCLUSION: 1. No significant EKG changes with the LexiScan infusion. 2. No LexiScan induced chest pain or cardiac arrhythmia. 3. Normal blood pressure and heart rate response. 4. Sestamibi/sestamibi perfusion scan pending; see separate report. Electronically Signed On 03-27-2020 13:40:14 CDT by Laya De Dios M.D. [id number]
[2020-03-26 07:16] VITALS: BMI 37.0
--- NOTE | 2020-03-26 07:16 | NMCV_ITS ---
NM nancy perf SPECT r/s* [id number] Mina Silva Age: 54 Gender: M : 1965 Exam Date: 03/26/2020 07:58 Ordering Phys: Laya De Dios MD ([email or web address]) Technologist: MOUNA Laird Exam Location: [facility] Indications: DYSPNEA STRESS TEST [facility] IMAGE PROTOCOL Rest/Stress 1 Lexiscan Day Radiopharmaceutical Dose (mCi) Administration Site Administered by Rest: Tc-99m 10.8 IV MOUNA Marie Sestamibi Stress:Tc-99m 33.0 IV MOUNA Marie Sestamibi Rest: 26-Mar-2020 60 Discovery 630 Stress: 26-Mar-2020 30 Discovery 630 0.4mg Lexiscan. Images obtained in supine and prone position. SPECT RESULTS Technical Quality: Excellent Raw Data Analysis: Normal Image Corrections: No attenuation or motion correction applied Summed Stress Score: 6 Summed Rest Score: 7 Summed Difference Score: 1 PERFUSION FINDINGS Small sized perfusion abnormality of mild severity of mid anterior, mid anterolateral, apical lateral and apical inferior erazo on rest images with improved tracer uptake on anterior anterolateral erazo on stress images. This is likely suggestive of attenuation artifact. FUNCTIONAL RESULTS (calculated via Gated SPECT) Stress Image LV EF (%): 61 Stress EDV (mL):147 TID: 1.1 Stress ESV (mL):58 FUNCTIONAL FINDINGS: The left ventricle is normal in size. Transient Ischemia Dilatation of 1.1. There is normal left ventricular systolic function. The left ventricular ejection fraction is normal with a value of 61%. There is normal left ventricular wall thickening. Increased end-diastolic volume. IMPRESSIONS 1. Small sized perfusion abnormality of mild severity of mid anterior, mid anterolateral, apical lateral and apical inferior erazo with improved tracer uptake on anterior anterolateral erazo on stress images. 2. This is likely suggestive of attenuation artifact. 3. Overall left ventricular systolic function is normal without regional wall motion abnormalities. 4. The left ventricular ejection fraction is normal with a value of 61%. 5. No coronary ischemia based on the study. Laya De Dios MD (Electronically Signed) Final Date: 26 March 2020 17:28 S
[2020-03-26 08:59] VITALS: BP 117/97; PULSE 82
[2020-03-26] MEDS: regadenoson 0.4 Mg/5 ml Syringe IVP (08:59)
[2020-03-26] MEDS: aminophylline 25 mg/mL SDV 10 mL IVP (09:05)
== END 2020-03-26 06:51 | disposition home or self-care (01) ==
PROVIDERS: Visit Provider Internal Medicine Cardiovascular Disease
DX: R06.00 Dyspnea, unspecified (principal); R07.9 Chest pain, unspecified
CPT/HCPCS: 78452; 93017; 96374; A9500; J0280; J2785

== ENCOUNTER 2020-04-16 12:00 | Outpatient (CLI) | payer BC, SELFPAY | END 2020-04-16 12:01 | disposition home or self-care (01) | LOC: SLEEP 04-17 10:44 | PROVIDERS: Visit Provider Internal Medicine Cardiovascular Disease | DX: R29.818 Other symptoms and signs involving the nervous system (principal) | CPT/HCPCS: G0399 ==

== ENCOUNTER → 2020-04-30 10:10 | Outpatient (BNVA) | payer BC, SELFPAY | PROVIDERS: Visit Provider Internal Medicine Cardiovascular Disease | DX: R06.00 Dyspnea, unspecified (principal); I10 Essential (primary) hypertension | CPT/HCPCS: 80048; 83735; 83880 ==

== ENCOUNTER 2020-08-07 07:21 | Day surgery (SDC) | payer BC, SELFPAY ==
[2020-08-02 14:12] VITALS: BMI 38.2
--- NOTE | 2020-08-07 07:28 | P.HP_ITS ---
Same Day Surgery H&P Indication for Procedure/HPI DATE OF PROCEDURE: August 07, 2020 CHIEF COMPLAINT/INDICATIONFOR SURGICAL PROCEDURE: Colonoscopy PREOP DIAGNOSIS: Colonoscopy PLANNED PROCEDRUE: Operation Date: 08/07/20 08:30 Proposed Procedures p Colonoscopy 99448 Z12.11(Not Applicable) - Gabriel Estrada MD Medications/Allergies* Home Medications Medication Instructions Recorded Confirmed Type atorvastatin 20 mg PO DAILY 10/24/19 08/02/20 History lorazepam 1 mg PO TID PRN 10/24/19 08/02/20 History metformin 1,000 mg PO BID 10/24/19 08/02/20 History pioglitazone 15 mg PO DAILY 10/24/19 08/02/20 History aspirin 81 mg tablet,delayed 81 mg PO DAILY 03/14/20 08/02/20 History release glimepiride 2 mg tablet 4 mg PO BID tab 03/14/20 08/02/20 History sildenafil (pulm.hypertension) 20 20 mg PO DAILY PRN tab 03/14/20 08/02/20 History mg tablet triamcinolone acetonide 0.5 % 1 applic TOPICAL BID 03/14/20 08/02/20 History topical cream Allergies/Adverse Reactions Allergy/AdvReac Type Severity Reaction Status Date / Time Penicillins Allergy ADR-Itching Verified 06/19/20 15:25 Pertinent History/Comorbid Conditions* Medical History (Updated 06/19/20 @ 19:16 by Gabriel Estrada MD) Hyperlipidemia -noted lipid panel -continue statin Morbid obesity -BMI-37 kg/m2 Non-insulin dependent type 2 diabetes mellitus -A1c-7.5 -Accuchecks, ISS, hypoglycemia precautions -hold metformin, pioglitazone, glimepiride -diabetic diet as tolerated Surgical History (Updated 06/19/20 @ 19:16 by Gabriel Estrada MD) H/O circumcision H/O eye surgery done in childhood History of left hip replacement Family History (Updated 06/19/20 @ 15:31 by Yany Thakkar LPN) CAD (coronary artery disease) Mother Atrial fibrillation Father multiple family members on paternal side Cancer Brother colon cancer 43 yrs old Family/Other aunts 38 and 54yrs old of colon cancer Denies family history of Anesthesia complication Bleeding disorder Social History Smoking and tobacco status: former smoker Quit status (tobacco): has quit using tobacco Year quit tobacco: 01/2018 Alcohol intake: current Alcohol intake frequency: holidays/special occasions only Lives independently: Yes Marital status: Single Current occupational status: employed History of recent travel: No Pertinent Exam Findings alert, oriented x 3 and regular rate & rhythm Recommendations Surgery/Procedure today Coding Level of Care Code Acute Stitch Welder for Jose Whatley
[2020-08-07 07:52] VITALS: BP 137/81; PULSE 88; RESP 16; TEMP 36.3; O2SAT 95
[2020-08-07] MEDS: sodium chloride 0.9% 1,000 ML 30 ML IV (07:57)
[2020-08-07 08:18] LABS: Glucose Point of Care 259 mg/dL (70-110)
--- NOTE | 2020-08-07 08:25 | ANES.PREANE2 ---
Pre-Anesthetic Assessment Pre-Anesthetic Assessment: Height/Weight: Height 1.85 m Weight 131.542 kg Temp Pulse Resp BP Pulse Ox 97.3 F L 88 16 137/81 95 08/07/20 07:52 08/07/20 07:52 08/07/20 07:52 08/07/20 07:52 08/07/20 07:52 Preop Diagnosis: screening colonoscopy Proposed Procedure: Operation Date: 08/07/20 08:30 Proposed Procedures p Colonoscopy 33760 Z12.11(Not Applicable) - Gabriel Estrada MD Was Beta Arelis taken within 24 hours: N/A Last intake: Intake Last Liquid Date 08/06/20 Last Liquid Time 21:00 Last Solid Date 08/05/20 Last Solid Time 18:00 Social: Social History: No alcohol and No tobacco Exam: Pre-Anes Outpt Exam: alert, oriented x 3 and clear to auscultation bilaterally Additional Exam Findings (including area of procedure): Irregular Airway: Submandibular: WNL Cervical ROM: WNL MP: 2 Dentition: Full Pulmonary: Pulmonary: None reported CV/HEM: CV/HEM: Afib and HTN : : None reported Hepatic: Hepatic: None reported GI: GI: None reported Metabolic: Metabolic: DM and Morbid obesity Musc/skel: Musc/skel: None reported Neuropsych: Neuropsych: Anxiety Anesthetic Plan: ASA status: 3 Anesthesia: MAC Meds/Allergies Current Medications: Current Medications Generic Name Dose Route Start Last Admin Trade Name Freq PRN Reason Stop Dose Admin Sodium Chloride 1,000 mls @ 30 ml s/hr 08/07/20 07:45 08/07/20 07:57 Sodium Chloride 0.9% IV 08/08/20 07:44 30 mls/hr .Q24H FABBY Administration PFSH Anesthesia PFSH: Medical History Hyperlipidemia -noted lipid panel -continue statin Morbid obesity -BMI-37 kg/m2 Non-insulin dependent type 2 diabetes mellitus -A1c-7.5 -Accuchecks, ISS, hypoglycemia precautions -hold metformin, pioglitazone, glimepiride -diabetic diet as tolerated Surgical History H/O circumcision H/O eye surgery done in childhood History of left hip replacement Family History Mother CAD (coronary artery disease) Father Atrial fibrillation multiple family members on paternal side Brother Cancer colon cancer 43 yrs old Family/Other Cancer aunts 38 and 54yrs old of colon cancer Denies family history of Anesthesia complication Bleeding disorder Social History Smoking and tobacco status: former smoker Quit status (tobacco): has quit using tobacco Year quit tobacco: 01/2018 Alcohol intake: current Alcohol intake frequency: holidays/special occasions only Lives independently: Yes Marital status: Single Current occupational status: employed History of recent travel: No Data Anesthesia Other Labs: Laboratory Results - last 48 hr 08/07/20 07:55 POC Glucose 259 Cardiac Studies: No Data to Display
[2020-08-07 09:08] VITALS: BP 116/73; PULSE 81; RESP 18; TEMP 36.8; O2SAT 95
--- NOTE | 2020-08-07 09:10 | ANE.PACU2 ---
Inpatient post-anesthesia follow up: Airway intact: Yes Vital signs: Temperature 98.2 F Pulse Rate 81 Respiratory Rate 18 Blood Pressure 116/73 Pulse Oximetry 95 Oxygen Delivery Me thod Room Air Oxygen Flow Rate Fraction of Inspir ed Oxygen Hydration adequate: Yes Nausea and vomiting: No Pain level: 0 Mental status: Baseline
[2020-08-07 09:19] VITALS: BP 123/67; PULSE 77; RESP 20; O2SAT 97
== END 2020-08-07 09:37 | disposition home or self-care (01) ==
PROVIDERS: PCP Nurse Practitioner Family; Visit Provider Surgery
PROC: 0DJD8ZZ Inspection of Lower Intestinal Tract, Via Natural or Artificial Opening Endoscopic (ICD-10-PCS; CPT 45378; principal; 2020-08-07 08:30)
DX: Z12.11 Encounter for screening for malignant neoplasm of colon (principal); I48.91 Unspecified atrial fibrillation; I10 Essential (primary) hypertension; E11.9 Type 2 diabetes mellitus without complications; E66.01 Morbid (severe) obesity due to excess calories; Z68.38 Body mass index [BMI] 38.0-38.9, adult; F41.9 Anxiety disorder, unspecified; E78.5 Hyperlipidemia, unspecified; Z79.84 Long term (current) use of oral hypoglycemic drugs; Z82.49 Family history of ischemic heart disease and other diseases of the circulatory system; Z87.891 Personal history of nicotine dependence
CPT/HCPCS: 12345; 36416; 45378; 82962; J7030

== ENCOUNTER → 2021-02-21 10:03 | Outpatient (BNVA) | payer OTHER, SELFPAY | PROVIDERS: PCP Nurse Practitioner Family; Visit Provider Internal Medicine Cardiovascular Disease | DX: I48.92 Unspecified atrial flutter (principal); R06.00 Dyspnea, unspecified; Z20.822 Contact with and (suspected) exposure to COVID-19 | CPT/HCPCS: 87635 ==

== ENCOUNTER 2021-02-25 07:03 | Outpatient (CLI) | payer OTHER, SELFPAY ==
--- NOTE | 2021-02-25 14:00 | PFTS_ITS ---
Date of Study:02/25/21 Date of Dictation: MECHANICS: Forced vital capacity (FVC) is reduced. Forced expiratory volume in one second (FEV1) is reduced. FEV1/FVC is normal. FLOW VOLUME LOOP: Normal. LUNG VOLUMES: Total lung capacity (TLC) is reduced. Residual volume (RV) is reduced. DIFFUSING CAPACITY FOR CARBON MONOXIDE: Normal. INTERPRETATION: The pulmonary function tests are consistent with mild restriction. There is no significant postbronchodilator response. Lung volumes are consistent with restrictive lung disease. Gas exchange (DLCO) is normal. MTDD
== END 2021-02-25 07:04 | disposition home or self-care (01) ==
PROVIDERS: PCP Nurse Practitioner Family; Visit Provider Internal Medicine Cardiovascular Disease
DX: R06.00 Dyspnea, unspecified (principal)
CPT/HCPCS: 94060; 94726; 94729; J7611

== ENCOUNTER 2023-03-04 05:58 | Outpatient (CLI) | payer OTHER, SELFPAY ==
[2023-03-04] VITALS (13 sets, daily range): BP systolic 105–125; BP diastolic 78–97; PULSE 76–101; RESP 14–22; TEMP 37.1; O2SAT 91–97; BMI 38.5
--- NOTE | 2023-03-04 06:00 | XACV_ITS ---
Exam Room: 2 Ht: 188 cm Wt: 136 kg BSA: 2.72 m2 Gender: Male : 1965 Any Known Allergies: Penicillins Exam Priority: Routine Procedure(s): Procedure Description: Diagnostic procedure Procedure Description: Left Heart Catheterization Procedure Description: Left ventriculography Procedure Description: Coronary Angiography Toi MORIN; Diagnostic Cath Status: Elective Diagnostic Findings * Patient with a multitude of risk factors and many atypical symptoms requesting coronary angiography. * Angiography reveals right coronary artery dominance. The left main coronary artery is normal and trifurcates into the left anterior descending, circumflex and a small ramus intermedius branch. The LAD is normal. The ramus is normal. The circumflex contains very minor luminal irregularities. The right coronary artery is the dominant vessel and ends distally as a posterior left ventricular branch and a posterior descending artery. It is free of disease. Conclusions 1. Essentially normal coronary arteries. Recommendations * None. Interventional RX Recommendation: none Diagnostic RX Recommendation: none Anticoagulation: Heparin Ventriculography Ejection Fraction: 65.0 % Pressures Phase:Rest AO : 85 / 70 ( 80 ) @ 8:16:00 AM 101 / 72 ( 83 ) @ 8:22:00 AM 107 / 54 ( 80 ) @ 8:22:00 AM LV : 130 / -7 / 13 @ 8:21:00 AM 132 / 0 / 17 @ 8:22:00 AM 129 / -3 / 15 @ 8:22:00 AM Valves Phase:DefaultPhase AV : 21.0 @ 7:27:18 AM 21.0 @ 7:27:18 AM AV Mean Gradient: 27.0 @ 7:27:18 AM 27.0 @ 7:27:18 AM Clinical Evaluation EBL: 5mL-10mL Procedural Details Procedure Consent Obtained. Pre-Procedure Time Out. Identified patient by full name and date of as verbalized by the patient/guarantor. Does the consent match the physician's order: Yes. Accurate & Complete Informed Consent: Yes. Inpatient/Outpatient History & Physical on Chart: Yes. If H&P is completed, is and addenduem needed: No. Visualize and Verify Site with Patient/Guarantor: N/A. Relevant Radiology Images available: Yes. The risks, benefits, and alternatives of sedation and/or procedure were discussed by physician. The patient agrees to continue. Procedure started. [facility] Clinical Fraility Score: 3: Managing Well. Plow Mechanic Indications: Other/SOB, fatigue. Chest Pain Symptom Assessment: Atypical Angina. Cardiovascular Instability: No. Correct patient, site and procedure confirmed by cath team. PERRLA. Strong, equal hand engine pilot bilaterally. Lungs clear x 5 lobes. IV Site on Arrival: 18 gauge in the left anticubital. IV Fluids: 0.9% NaCl at KVO. 0 mL infused prior to shop laborer. Pre Procedural Pulses: bilateral dorsalis pedis was 1+. Pre Procedural Pulses: bilateral posterior tibial was 1+. Pre Procedural Pulses: bilateral radial was 3+. Oxygen started at 2liters/min via nasal canula. right groin was prepped with chloroprep then draped in the usual sterile fashion. right radial was prepped with chloroprep then draped in the usual sterile fashion. Physician notified. Baseline sample Acquired. HR: 77 BPM. Patient's family unavailable. Equipment: 6F - Radial. Cardiac Cath Pack. ACIST Manifold Kit Model BT 2000. Heparinized Saline (2 units/mL), 1000 mL bag. Physician arrived. Physician scrubbed in. Immediate Pre-Procedure Time Out. Correct Patient: Yes; Correct Procedure: Yes; Correct Site: Yes; Correct Patient Position: Yes; Correct Supplies: Yes; Dried Flammable Prep: Yes; Blood Products Available: N/A;. Lidocaine 1% infiltrated to the right radial. Arterial access obtained. A 6 sammarinese TIG catheter in over the Exchange J wire. Multiple views taken of left coronary artery. Catheter redirected to the RCA. Multiple views taken of right coronary artery. Catheter removed over the exchange J wire. A 6 sammarinese Angled Pig catheter in over the exchange J wire. EDP Sample taken: LV 130/-8,13; HR: 97 BPM; SpO2: 93%. LV gram performed in NAGY @ 10 mL/second for a total of 30 mL. EDP Sample taken: LV 132/-1,17; HR: 88 BPM; SpO2: 95%. Pullback taken: LV 129/-4,15; AO 101/72(83); Mean: 27mmHg, Peak to Peak: 21mmHg, SEP: 12sec/min; HR: 98 BPM; SpO2: 94%. Catheter removed over the exchange J wire. Physician scrubbed out. A TR Band was successful obtaining hemostatsis at the Right Radial artery insertion site. TR band placed. Hemostasis obtained. Post Procedure: Pulses reassessed and unchanged. PERRLA. Strong, equal hand engine pilot bilaterally. No VTE prophylaxis required. Medication's Wasted: Lidocaine 1% = 1 mL. Medication's Wasted: Nitro = 49.8 mg. Medication's Wasted: Heparin = 1000 Units. Medication's Wasted: Other = Versed 1 mg. Medication's Wasted: Other = Fentanyl 25 mcg. Total IV fluids: 26 mL. Post-op diagnosis: Non-obstructive CAD. Complications: none. Estimated blood loss: 5mL-10mL. Responsiveness - Normal response to verbal stimuli; alert and oriented, PERRLA. Airway - Unaffected, no intervention required; spontaneous ventilation. Circulation: W/N/L, pulses unchanged. Nausea/Vomiting: No. Procedure completed. Patient transferred by wheelchair to CPRU. Vital chart was stopped. Access Site Site: Right Radial artery Sheath Size: 6 Fr Hemostasis Method: TR Band Hemostasis Success: Successful Procedure Medications Start: 7:02 AM Stop: 7:02 AM Medication: Versed Amount: 1 mg Route: I.V. Start: 7:02 AM Stop: 7:02 AM Medication: Fentanyl Amount: 50 mcg Route: I.V. Start: 7:14 AM Stop: 7:14 AM Medication: Versed Amount: 1 mg Route: I.V. Start: 7:14 AM Stop: 7:14 AM Medication: Fentanyl Amount: 25 mcg Route: I.V. Start: 7:15 AM Stop: 7:15 AM Medication: Heparin Amount: 5000 units Route: I.V. I, the attending physician, have reviewed and verified all procedure medications. Yes, all medications given per verbal order History/Risk Factors Hypertension: Yes Dyslipidemia: Yes Peripheral Arterial Disease (PAD): No Myocardial Infarction (WA): No Obesity: Yes Renal Disease: No Tobacco Use: Former Prior Interventions PCI: No CABG: No Valve Surgery: No Report Signatures Finalized by Dr. Sidney Cm MD on 03/04/2023 07:35 AM
[2023-03-04 06:39] LABS: Basophils # 0.1 10^3/uL (0.0-0.1); Basophils % 0.8 %; Eosinophils # 0.2 10^3/uL (0.0-0.8); Eosinophils % 2.2 %; Hematocrit 47.9 % (42.0-52.0); Hemoglobin 15.8 g/dL (11.7-16.6); Lymphocytes # 2.4 10^3/uL (0.8-4.8); Lymphocytes % 32.6 %; Mean Corpuscular Hemoglobin 28.5 pg (28.0-34.0); Mean Corpuscular Volume 86.5 fl (80-94); Mean Platelet Volume 10.3 fL (7.4-10.4); Monocytes # 0.8 10^3/uL (0.2-0.9); Monocytes % 11.1 %; Neutrophils # 3.91 10^3/uL (1.8-7.7); Neutrophils % 52.6 %; Nucleated Red Blood Cells % 0 %; Platelet Count 250 10^3/cmm (130-400); Red Blood Count 5.54 10^6/uL (4.1-5.3); Red Cell Distribution Width 13.9 % (12.1-15.1); White Blood Count 7.4 10^3/uL (4.0-10.0)
[2023-03-04] MEDS: diphenhydrAMINE 50 mg Capsule PO (06:41)
--- NOTE | 2023-03-04 06:54 | W.PM.OPSUD ---
Surgery/Procedure H&P Update DATE OF PROCEDURE: March 04, 2023 DATE H&P PERFORMED: 02/09/23 CHANGES TO PREVIOUS DOCUMENTATION: None PREOP DIAGNOSIS: Chest pain, SOB PRIMARY INDICATION FOR PROCEDURE: SOB PLANNED PROCEDURE: Operation Date: 03/04/23 07:00 Proposed Procedures p [[facility] w/ w/o 61220], R07.9(Left) - Sidney Cm MD
[2023-03-04 06:59] LABS: Anion Gap 16.6 (5-19); Blood Urea Nitrogen 18 mg/dL (6-20); Calcium 9.2 mg/dL (8.5-10.5); Carbon Dioxide 24 mmol/L (22-29); Chloride 103 mmol/L (98-107); Glomerular Filtration Rate 76.7 mL/min (90-130); Glucose 209 mg/dL (65-115); Osmolality Calculated 296 mOsm/kg (285-295); Potassium 4.6 mmol/L (3.5-5.1); Sodium 139 mmol/L (136-145)
[2023-03-04 07:58] LABS: Glucose Point of Care 211 mg/dL (70-110)
--- NOTE | 2023-03-04 09:23 | PM.DCS ---
Discharge Providers Date of Admission: March 04, 2023 Date of Discharge: March 04, 2023 Attending Provider at Admission: colten Attending Provider at Discharge: Sidney Cm MD Primary Care Provider: Jacqueline Silva Diagnoses at Discharge Discharge Diagnosis (1) Chest pain: Status: Acute (2) Chronic anticoagulation: Status: Acute (3) RAFFY (obstructive sleep apnea): Status: Acute (4) Atrial flutter, paroxysmal: Status: Acute (5) Non-insulin dependent type 2 diabetes mellitus: Status: Acute Permanent problem details: -A1c-7.5 -Accuchecks, ISS, hypoglycemia precautions -hold metformin, pioglitazone, glimepiride -diabetic diet as tolerated (6) Hyperlipidemia: Status: Acute Qualifiers: Hyperlipidemia type: unspecified Qualified Code(s): E78.5 - Hyperlipidemia, unspecified Permanent problem details: -noted lipid panel -continue statin (7) Morbid obesity: Status: Acute Permanent problem details: -BMI-37 kg/m2 (8) Dyspnea on exertion: Status: Acute Reason for Visit Reason for Visit: R07.9 Brief History: Patient came to see me urgently a few weeks ago in the office complaining of chest pain, fatigue, shortness of breath. Previous stress test have been unremarkable. He has been a smoker and is obese. He was certain something was wrong with his heart and requested coronary angiography. Hospital Course Hospital Course Angiography was performed from the right radial artery. It was basically normal. Left ventriculography was normal. There were no complications. At discharge the right radial artery area was flat, dry without bleeding or hematoma. Physical Exam Narrative: GENERAL: In general he looks and feels well HEENT: Exam within normal limits. NECK: Supple without jugular vein distention. The carotid upstroke is normal without bruits. BACK: Exam normal. LUNGS: Clear. HEART: Regular rate and rhythm. ABDOMEN: Benign without organomegaly or tenderness. EXTREMITIES: No edema. At discharge the right radial artery entry site was flat, dry without bleeding, hematoma or vascular anomaly. NEUROLOGIC: Exam normal. SKIN: Unremarkable. Discharge Data Studies Completed and Pending Completed Studies During Hospitalization Category Date Time Status FICTION AND NONFICTION AUTHOR request for service Routine Exams 03/04/23 06:00 Completed Laboratory Results WBC 7.4 10^3/uL (4.0-10.0) 03/04/23 06:25 RBC 5.54 10^6/uL (4.1-5.3) H 03/04/23 06:25 Hgb 15.8 g/dL (11.7-16.6) 03/04/23 06:25 Hct 47.9 % (42.0-52.0) 03/04/23 06:25 MCV 86.5 fl (80-94) 03/04/23 06:25 MCH 28.5 pg (28.0-34.0) 03/04/23 06:25 MCHC 33.0 g/dL (30.0-36.0) 03/04/23 06:25 RDW 13.9 % (12.1-15.1) 03/04/23 06:25 Plt Count 250 10^3/cmm (130-400) 03/04/23 06:25 MPV 10.3 fL (7.4-10.4) 03/04/23 06:25 Neut % (Auto) 52.6 % 03/04/23 06:25 Lymph % (Auto) 32.6 % 03/04/23 06:25 [place] % (Auto) 11.1 % 03/04/23 06:25 Eos % (Auto) 2.2 % 03/04/23 06:25 Baso % (Auto) 0.8 % 03/04/23 06:25 Neut # (Auto) 3.91 10^3/uL (1.8-7.7) 03/04/23 06:25 Lymph # (Auto) 2.4 10^3/uL (0.8-4.8) 03/04/23 06:25 [place] # (Auto) 0.8 10^3/uL (0.2-0.9) 03/04/23 06:25 Eos # (Auto) 0.2 10^3/uL (0.0-0.8) 03/04/23 06:25 Baso # (Auto) 0.1 10^3/uL (0.0-0.1) 03/04/23 06:25 Nucleated RBC % (auto) 0 % 03/04/23 06:25 Nucleated RBCs # 0.0 /100WBC 03/04/23 06:25 Sodium 139 mmol/L (136-145) 03/04/23 06:25 Potassium 4.6 mmol/L (3.5-5.1) 03/04/23 06:25 Chloride 103 mmol/L (98-107) 03/04/23 06:25 Carbon Dioxide 24 mmol/L (22-29) 03/04/23 06:25 Anion Gap 16.6 (5-19) 03/04/23 06:25 BUN 18 mg/dL (6-20) 03/04/23 06:25 Creatinine 1.0 mg/dL (0.7-1.2) 03/04/23 06:25 GFR Calculation 76.7 mL/min (90-130) L 03/04/23 06:25 Glucose 209 mg/dL (65-115) H 03/04/23 06:25 POC Glucose 211 mg/dL (70-110) H 03/04/23 06:25 Calculated Osmolality 296 mOsm/kg (285-295) H 03/04/23 06:25 Calcium 9.2 mg/dL (8.5-10.5) 03/04/23 06:25 Procedures Performed Left heart catheterization, coronary angiography, left ventriculography Vitals Last Vital Signs Temp 98.7 F 03/04/23 06:50 Pulse 94 03/04/23 09:00 Resp 19 H 03/04/23 09:00 BP 123/91 03/04/23 09:00 Pulse Ox 93 03/04/23 09:00 O2 Del Method Room Air 03/04/23 09:00 Discharge Plan Discharge Patient Disposition: Home Prescriptions: Continued glimepiride 2 mg tablet 4 mg PO BID aspirin [Aspir-81] 81 mg tablet,delayed release (DR/EC) 81 mg PO QPM Farxiga 10 mg tablet 10 mg PO DAILY metoprolol tartrate 50 mg tablet 75 mg PO BID lorazepam 1 mg tablet 1 mg PO DAILY Ozempic 0.25 mg or 0.5 mg (2 mg/3 mL) pen injector 0.5 mg SUBCUT .Q 7 days lisinopril-hydrochlorothiazide 20-25 mg tablet 1 tab PO DAILY Qty: 30 3RF Eliquis 5 mg tablet 5 mg PO BID Qty: 180 3RF Rx Instructions: Must make follow-up for further refills diltiazem HCl 300 mg capsule,extended release 24hr 300 mg PO DAILY Qty: 90 3RF pioglitazone 15 mg tablet 15 mg PO DAILY atorvastatin 20 mg tablet 20 mg PO DAILY metformin 1,000 mg tablet 1,000 mg PO BID Discharge Orders: Discharge Order (Routine); Ordered 03/04/23 Ordered By: Sidney Cm Referrals: Sidney Cm MD [Physician] - 6 Weeks Macy Kelley FNP [Nurse Practitioner] - 7-10 days (Check right radial artery area and chemistry panel.) Diet: Diabetic Activity: Limit activity as instructed Activity Restrictions/Additional Instructions: No lifting over 5 pounds for 2 days. Discharge Attestations Time Spent in Discharge Care*: less than 30 min Status at Discharge: Cognitive status at discharge: cognitively intact, Behavioral status at discharge: cooperative, Quality Metrics Clinical Quality Measures [ No reported AMI, CVA or VTE this stay] Coding Level of Care Code 97395 Total time (in minutes) for Discharge: 25 Diagnoses Chest pain R07.9 Chronic anticoagulation Z79.01 RAFFY (obstructive sleep apnea) G47.33 Atrial flutter, paroxysmal I48.92 Non-insulin dependent type 2 diabetes mellitus E11.9 Hyperlipidemia E78.5 Hyperlipidemia type: unspecified Morbid obesity E66.01 Dyspnea on exertion R06.00
--- NOTE | 2023-03-04 09:53 | PC.NURSE ---
around 930 nurse released last ml of air from TR band. no bruising or hematoma noted. pt educated on restrictions of right wrist and pt acknowledged understanding. nurse will continue to educate throughout recovery. plan to dc by 1030 if all continues without incident.
== END 2023-03-04 10:47 | disposition home or self-care (01) ==
PROVIDERS: PCP Nurse Practitioner Family; Visit Provider Internal Medicine Cardiovascular Disease
DX: R07.9 Chest pain, unspecified (principal); R06.00 Dyspnea, unspecified; Z79.01 Long term (current) use of anticoagulants; G47.33 Obstructive sleep apnea (adult) (pediatric); E78.5 Hyperlipidemia, unspecified; E11.9 Type 2 diabetes mellitus without complications; I48.92 Unspecified atrial flutter; E66.01 Morbid (severe) obesity due to excess calories; Z68.38 Body mass index [BMI] 38.0-38.9, adult; Z79.82 Long term (current) use of aspirin; Z79.84 Long term (current) use of oral hypoglycemic drugs; Z87.891 Personal history of nicotine dependence
CPT/HCPCS: 36415; 36416; 80048; 82962; 85025; 93458; 96365; 99152; 99153; C1769; C1887; C1894; J1644; J2250; J3010; J3490; J7030; Q0163; Q9967

== ENCOUNTER → 2023-03-16 10:25 | Outpatient (BNVA) | payer OTHER, SELFPAY | PROVIDERS: PCP Nurse Practitioner Family; Visit Provider Nurse Practitioner Family | DX: I48.92 Unspecified atrial flutter (principal) | CPT/HCPCS: 80048 ==

== ENCOUNTER 2024-08-24 10:04 | Emergency (ER) | payer OTHER, SELFPAY ==
[2024-08-24 10:09] VITALS: BP 141/86; PULSE 107; RESP 21; TEMP 36.7; O2SAT 95; BMI 37.2
--- NOTE | 2024-08-24 10:17 | XRR_ITS ---
PROCEDURE INFORMATION: Exam: XR Chest Exam date and time: 08/24/2024 10:44 AM Age: 59 years old Clinical indication: Fever TECHNIQUE: Imaging protocol: Radiologic exam of the chest. Views: 1 view. COMPARISON: CR XR chest 1V portable [id number] 10/24/2019 4:13 PM FINDINGS: Lungs: Patchy bilateral lower lobe opacities. Mild bronchovascular prominence. Pleural spaces: No significant pleural effusion. No pneumothorax. Heart/Mediastinum: The cardiomediastinal silhouette is mildly enlarged. Vasculature: Calcification of the aortic arch. Bones/joints: Unremarkable. XR/XR chest 1V portable [id number] IMPRESSION: 1. Patchy bibasilar airspace opacities may represent atelectasis and/or scarring. Superimposed infectious etiology not entirely excluded. 2. Stable mild cardiomegaly with mild bronchovascular prominence suggesting mild pulmonary vascular congestion.
[2024-08-24 10:32] LABS: Basophils % 0.7 %; Eosinophils % 0.2 %; Lymphocytes # 0.4 10^3/uL (0.8-4.8); Mean Corpuscular HGB Conc 32.8 g/dL (30-55); Mean Corpuscular Hemoglobin 28.3 pg (27-33); Mean Corpuscular Volume 86.2 fl (82-101); Mean Platelet Volume 9.7 fL (7.4-10.4); Monocytes # 0.4 10^3/uL (0.2-0.9); Monocytes % 7.3 %; Neutrophils # 5.15 10^3/uL (1.8-7.7); Nucleated Red Blood Cells % 0 %; Platelet Count 180 10^3/cmm (157-399); Red Blood Count 5.45 10^6/uL (3.85-5.65); Red Cell Distribution Width 13.7 % (12.1-15.1); White Blood Count 6.05 10^3/uL (3.29-11.43)
[2024-08-24 10:46] LABS: Alanine Aminotransferase 31 U/L (0-41); Albumin Level 4.1 g/dL (3.5-5.2); Alkaline Phosphatase 73 U/L (40-130); Anion Gap 19.3 (5-19); Aspartate Amino Transferase 33 U/L (0-40); Blood Urea Nitrogen 10 mg/dL (8-23); Calcium 8.9 mg/dL (8.5-10.5); Carbon Dioxide 22 mmol/L (22-29); Chloride 98 mmol/L (98-107); Creatinine Clr Calc Pharmacy 113.2631; Globulin 2.7 g/dL (1.3-4.6); Glomerular Filtration Rate 76.2 mL/min (90-130); Glucose 282 mg/dL (65-115); Osmolality Calculated 289 mOsm/kg (285-295); Potassium 4.3 mmol/L (3.5-5.1); Sodium 135 mmol/L (136-145); Total Protein 6.8 g/dL (6.6-8.7)
--- NOTE | 2024-08-24 11:09 | W.ED.FEVER ---
HPI - Fever General: Chief Complaint: Fever Stated Complaint: fever, sore throat Time Seen by Provider: 08/24/24 10:43 History of Present Illness: This patient is a 59-year-old presenting with fever, cough, sore throat, sinus congestion. He also complains of aching all over. He started having a little bit of a sore throat yesterday afternoon. Last night he developed fevers, chills, sweats. He reports that he took his temperature with multiple thermometers and it was 107. He took Tylenol this morning at about 8:00. He says he is starting to feel chills again. He denies sick contacts. He has not had a flu shot or COVID shot this year. He is a diabetic. He complains of shortness of breath and chest pain. Nausea but no vomiting. No diarrhea. He urinates frequently since being started on Lasix recently. He also complains of headache. No stiff neck. He is on apixaban although on initial review of his chart I am not sure what the reason is. Related Data Home Medications Medication Instructions Recorded Confirmed atorvastatin 20 mg tablet 20 mg PO DAILY 10/24/19 08/24/24 metformin 1,000 mg tablet 1,000 mg PO BID 10/24/19 08/24/24 glimepiride 2 mg tablet 4 mg PO BID 03/14/20 08/24/24 dapagliflozin propanediol 10 mg 10 mg PO DAILY 01/01/22 08/24/24 tablet (Farxiga) lorazepam 1 mg tablet 1 mg PO DAILY 02/09/23 08/24/24 acetaminophen 500 mg tablet 1,000 mg PO Q6H PRN Pain 08/24/24 08/24/24 aspirin 81 mg tablet,delayed 81 mg PO DAILY 08/24/24 08/24/24 release semaglutide 2 mg/dose (8 mg/3 mL) 2 mg SUBCUT Q7D 08/24/24 08/24/24 subcutaneous pen injector (Ozempic) spironolactone 25 mg tablet 25 mg PO DAILY 08/24/24 08/24/24 Previous Rx's Medication Instructions Recorded apixaban 5 mg tablet (Eliquis) 5 mg PO BID #180 tabs 02/04/22 diltiazem HCl 300 mg 300 mg PO DAILY #90 caps 08/12/22 capsule,extended release 24 hr metoprolol tartrate 50 mg tablet 100 mg (2 x 50 mg) PO BID #360 tabs 03/16/23 oseltamivir 75 mg capsule (Tamiflu) 75 mg PO BID 5 days #10 caps 08/24/24 Allergies Allergy/AdvReac Type Severity Reaction Status Date / Time Penicillins Allergy ADR-Itching Verified 07/14/24 10:21 PFSH ED PFSH: Medical History Chest pain Non-insulin dependent type 2 diabetes mellitus -A1c-7.5 -Accuchecks, ISS, hypoglycemia precautions -hold metformin, pioglitazone, glimepiride -diabetic diet as tolerated Morbid obesity -BMI-37 kg/m2 Hyperlipidemia -noted lipid panel -continue statin Surgical History Status post colonoscopy (08/07/20) Normal repeat 5 years H/O circumcision H/O eye surgery done in childhood History of left hip replacement Family History Mother CAD (coronary artery disease) Father Atrial fibrillation multiple family members on paternal side Brother Cancer colon cancer 43 yrs old Family/Other Cancer aunts 38 and 54yrs old of colon cancer Denies family history of Anesthesia complication Bleeding disorder Social History Smoking and tobacco/nicotine status: unknown if used tobacco/nicotine Quit status (tobacco/nicotine): has quit using Year quit tobacco: 01/2018 Alcohol intake: current Alcohol intake frequency: holidays/special occasions only Substance/Drug Use: never Lives independently: Yes Marital status: Single Current occupational status: employed Physical Exam Const: COMMON NORMALS: no acute distress, patient oriented x3, no limitations and alert OTHER: Uncomfortable, alert and oriented. HENMT: HEAD & SCALP: normal to inspection FACE & SINUS: normal facial exam Eye: GENERAL EYE: appearance normal, both eyes and all related structures Neck/C-Spine: COMMON NORMALS: supple, no meningeal signs and no JVD Chest: COMMONS NORMALS: normal inspection of the chest Resp: COMMON NORMALS: normal respiratory effort, No use of accessory muscles and clear to auscultation bilaterally AUSCULTATION: clear to auscultation bilaterally Cardio: COMMON NORMALS: no JVD, regular rate, regular rhythm and No murmurs present (Cardio) RATE: regular rate and tachycardic RHYTHM: regular rhythm GI: COMMON NORMALS: Normal to inspection, nondistended, normoactive bowel sounds present, Soft to palpation and non-tender INSPECTION: Yes normal to inspection AUSCULTATION: Yes normoactive bowel sounds PALPATION: Yes Soft to palpation Back/Pelvis: COMMON NORMALS: thoracic and lumbar spine normal to inspection Extremity: COMMON NORMALS: normal to inspection Neuro: COMMON NORMALS: patient oriented x3, moves all extremities, no focal motor deficits and no sensory deficits noted SENSORIUM/ORIENTATION: Yes alert MENINGEAL SIGNS: Yes no meningeal signs Psych: COMMON NORMALS: mental status grossly normal, cooperative and normal affect Skin: COMMON NORMALS: no rashes or lesions noted and turgor normal GENERAL SKIN EXAM: no rashes or lesions noted and turgor normal Course Vital Signs: Vital signs: Vital Signs Temperature 98.1 F 08/24/24 10:09 Pulse Rate 103 H 08/24/24 14:11 Respiratory Rate 21 H 08/24/24 10:09 Blood Pressure 136/75 08/24/24 14:11 Pulse Oximetry 92 08/24/24 14:11 Oxygen Delivery Me thod Room Air 08/24/24 10:09 MDM - Fever Medical Decision Making Patient reports a very high fever overnight. He is afebrile here after taking Tylenol. 1 day of headache, fever, nausea. Flu and COVID swab pending. Chest x-ray pending. Given his other history of also ordered an EKG and a BNP. Flu A positive - within the first 24 hours of symptoms and given comorbidities he is an excellent candidate for tamiflu. This was started in the ED and prescribed for home. Lab Data 08/24/24 10:25 08/24/24 10:25 Radiology Impressions Chest X-Ray 08/24/24 10:17 IMPRESSION: 1. Patchy bibasilar airspace opacities may represent atelectasis and/or scarring. Superimposed infectious etiology not entirely excluded. 2. Stable mild cardiomegaly with mild bronchovascular prominence suggesting mild pulmonary vascular congestion. Laboratory Results WBC 6.05 10^3/uL (3.29-11.43) 08/24/24 10:25 RBC 5.45 10^6/uL (3.85-5.65) 08/24/24 10:25 Hgb 15.40 g/dL (11.27-16.99) 08/24/24 10:25 Hct 47.0 % (37-53) 08/24/24 10:25 MCV 86.2 fl (82-101) 08/24/24 10:25 MCH 28.3 pg (27-33) 08/24/24 10:25 MCHC 32.8 g/dL (30-55) 08/24/24 10:25 RDW 13.7 % (12.1-15.1) 08/24/24 10:25 Plt Count 180 10^3/cmm (157-399) 08/24/24 10:25 MPV 9.7 fL (7.4-10.4) 08/24/24 10:25 Neut % (Auto) 85.0 % 08/24/24 10:25 Lymph % (Auto) 6.0 % 08/24/24 10:25 [place] % (Auto) 7.3 % 08/24/24 10:25 Eos % (Auto) 0.2 % 08/24/24 10:25 Baso % (Auto) 0.7 % 08/24/24 10:25 Neut # (Auto) 5.15 10^3/uL (1.8-7.7) 08/24/24 10:25 Lymph # (Auto) 0.4 10^3/uL (0.8-4.8) L 08/24/24 10:25 [place] # (Auto) 0.4 10^3/uL (0.2-0.9) 08/24/24 10:25 Eos # (Auto) 0.0 10^3/uL (0.0-0.8) 08/24/24 10:25 Baso # (Auto) 0.0 10^3/uL (0.0-0.1) 08/24/24 10:25 Nucleated RBC % (auto) 0 % 08/24/24 10:25 Nucleated RBCs # 0.0 /100WBC 08/24/24 10:25 Sodium 135 mmol/L (136-145) L 08/24/24 10:25 Potassium 4.3 mmol/L (3.5-5.1) 08/24/24 10:25 Chloride 98 mmol/L (98-107) 08/24/24 10:25 Carbon Dioxide 22 mmol/L (22-29) 08/24/24 10:25 Anion Gap 19.3 (5-19) H 08/24/24 10:25 BUN 10 mg/dL (8-23) 08/24/24 10:25 Creatinine 1.0 mg/dL (0.7-1.2) 08/24/24 10:25 GFR Calculation 76.2 mL/min (90-130) L 08/24/24 10:25 Glucose 282 mg/dL (65-115) H 08/24/24 10:25 Calculated Osmolality 289 mOsm/kg (285-295) 08/24/24 10:25 Calcium 8.9 mg/dL (8.5-10.5) 08/24/24 10:25 Total Bilirubin 1.0 mg/dL (0.15-1.2) 08/24/24 10:25 AST 33 U/L (0-40) 08/24/24 10:25 ALT 31 U/L (0-41) 08/24/24 10:25 Alkaline Phosphatase 73 U/L (40-130) 08/24/24 10:25 NT-Pro-B Natriuret Pep 2630 pg/mL (0-125) H 08/24/24 10:25 Total Protein 6.8 g/dL (6.6-8.7) 08/24/24 10:25 Albumin 4.1 g/dL (3.5-5.2) 08/24/24 10:25 Globulin 2.7 g/dL (1.3-4.6) 08/24/24 10:25 Coronavirus (PCR) Negative (Negative) 08/24/24 11:24 Influenza A (PCR) Positive (Negative) 08/24/24 11:24 Influenza Type B (PCR) Negative (Negative) 08/24/24 11:24 RSV (PCR) Negative (Negative) 08/24/24 11:24 All radiology interpretation(s) finalized by discharge Discharge Plan Discharge Patient Disposition: Home Clinical Impression: Influenza A, Morbid obesity, Non-insulin dependent type 2 diabetes mellitus Condition: Stable Prescriptions: New oseltamivir [Tamiflu] 75 mg capsule 75 mg PO BID 5 Days Qty: 10 0RF No Action glimepiride 2 mg tablet 4 mg PO BID Farxiga 10 mg tablet 10 mg PO DAILY lorazepam 1 mg tablet 1 mg PO DAILY metoprolol tartrate 50 mg tablet 100 mg PO BID Qty: 360 3RF Rx Instructions: Dose increase on 03/16/23 Eliquis 5 mg tablet 5 mg PO BID Qty: 180 3RF diltiazem HCl 300 mg capsule,extended release 24hr 300 mg PO DAILY Qty: 90 3RF atorvastatin 20 mg tablet 20 mg PO DAILY metformin 1,000 mg tablet 1,000 mg PO BID aspirin 81 mg tablet,delayed release (DR/EC) 81 mg PO DAILY spironolactone 25 mg tablet 25 mg PO DAILY Ozempic 2 mg/dose (8 mg/3 mL) pen injector 2 mg SUBCUT Q7D acetaminophen [Tylenol Ex Str Rapid Release] 500 mg Tablet 1,000 mg PO Q6H PRN (Reason: Pain) Discharge Orders: Discharge ED (Routine); Ordered 08/24/24 Ordered By: Marylin Gomez Referrals: Marie Pringle FNP [Primary Care Provider] - Discharge Diet: Advance as tolerated Discharge Activity: Limit activity as instructed Patient Instructions: Opioid Safety, Pain Management Activity Restrictions/Additional Instructions: Rest, drink plenty of fluids. Use tylenol - 1000 mg every 4 - 6 hours as needed for fever, headache, body aches. Return to the ED if new or worse symptoms. You are contagious for at least 5 days or until symptoms are improving. Coding Level of Care Code ED Sharples Machine Operator for Jose Whatley
--- NOTE | 2024-08-24 11:27 | ECG_ITS ---
[employer] [employer] [facility] Test Date: 2024-08-24 Pat Name: Mina Silva Department: Room: Gender: Male Skiver Counter: : 1965 Requested By: Marylin Etienne Order Number: [id number] Scott MD: Maddi Nation M.D. Measurements Intervals [place] Rate: 105 P: 0 OR: 0 QRS: 87 QRSD: 144 T: 23 QT: 349 QTc: 461 Interpretive Statements ATRIAL FIBRILLATION WITH RAPID VENTRICULAR RESPONSE RIGHT BUNDLE BRANCH BLOCK [120+ ms QRS DURATION, UPRIGHT V1, 40+ ms S IN I/aVL/V4/V5/V6] Compared to ECG 10/24/2019 15:56:52 Right bundle-branch block now present Electronically Signed On 08-24-2024 17:36:52 WATER SOFTENER SERVICE SUPERVISOR by Maddi Nation M.D. [email or web address]
[2024-08-24 11:42] LABS: NT Pro B Type Natriuretic Pept 2630 pg/mL (0-125)
[2024-08-24 11:46] VITALS: BP 120/85; PULSE 101; O2SAT 92
[2024-08-24 12:10] LABS: Covid PCR NEGATIVE (Negative); Influenza A POSITIVE (Negative); Influenza B NEGATIVE (Negative); Respiratory Syncytial Virus Ce NEGATIVE (Negative)
[2024-08-24] MEDS: acetaminophen 500 mg Tablet 1000 MG PO (13:42)
[2024-08-24] MEDS: oseltamivir phosphate 75 mg Capsule PO ×2 (13:42→14:08)
[2024-08-24] MEDS: ketorolac 30 mg/mL INJ IM (13:43)
--- NOTE | 2024-08-24 14:09 | PC.NURSE ---
TAMIFLU TABLET GIVEN TO PATIENT TO TAKE HOME FOR DOSE TONIGHT PER PROVIDER.
[2024-08-24 14:11] VITALS: BP 136/75; PULSE 103; O2SAT 92
== END 2024-08-24 14:12 | disposition home or self-care (01) ==
PROVIDERS: Emergency Medicine; Emergency Provider Emergency Medicine; PCP Nurse Practitioner Family
DX: J10.1 Influenza due to other identified influenza virus with other respiratory manifestations (principal); E66.01 Morbid (severe) obesity due to excess calories; Z68.37 Body mass index [BMI] 37.0-37.9, adult; E11.9 Type 2 diabetes mellitus without complications; Z11.52 Encounter for screening for COVID-19; Z79.84 Long term (current) use of oral hypoglycemic drugs; Z79.82 Long term (current) use of aspirin; Z87.891 Personal history of nicotine dependence; E78.5 Hyperlipidemia, unspecified
CPT/HCPCS: 36415; 71045; 80053; 83880; 85025; 87637; 93005; 96372; 99285; J1885

== ENCOUNTER 2024-09-26 11:44 | Outpatient (CLI) | payer OTHER, SELFPAY ==
--- NOTE | 2024-09-26 11:50 | XR_ITS ---
WS: [id number] Exam: XR lumbar spine 2-3V* [id number] Date/Time of Exam: 09/26/2024 11:54 AM Reason For Exam: LOW BACK PAIN No fracture or dislocation. Slight narrowing of the L3-4 and L5-S1 discs. Posterior elements are inta ct. There is spondylosis. Mild dextroscoliosis. XR/XR lumbar spine 2-3V* [id number] IMPRESSION: 1. Degenerative changes as detailed above and mild dextroscoliosis.
--- NOTE | 2024-09-26 11:50 | XR_ITS ---
WS: [id number] Exam: XR thoracic spine 3V* [id number] Date/Time of Exam: 09/26/2024 11:54 AM Reason For Exam: LOW BACK PAIN No acute fracture. There is spondylosis. Very slight levoscoliosis. Normal paraspinal soft tissues. XR/XR thoracic spine 3V* [id number] IMPRESSION: 1. No fracture or malalignment. Spondylosis and slight scoliosis.
== END 2024-09-26 11:45 | disposition home or self-care (01) ==
LOC: RAD 11:48
PROVIDERS: PCP Nurse Practitioner Family; Visit Provider Nurse Practitioner Adult Health
DX: M41.86 Other forms of scoliosis, lumbar region (principal); M47.9 Spondylosis, unspecified
CPT/HCPCS: 72072; 72100

== ENCOUNTER 2025-03-16 09:20 | Outpatient (CLI) | payer OTHER, SELFPAY ==
--- NOTE | 2025-03-16 09:34 | MM_ITS ---
WS: [id number] BILATERAL 3D TOMOSYNTHESIS DIGITAL DIAGNOSTIC MAMMOGRAPHY WITH CAD CLINICAL INFORMATION: MASTODYNIA HISTORY: LEFT breast pain COMPARISON: None. TECHNIQUE: Bilateral CC, MLO, and ML views. FINDINGS: Scattered fibroglandular densities bilaterally. Pain markers LEFT breast. Wispy subareolar tissue in this area. Ultrasound described below No suspicious abnormalities RIGHT breast ULTRASOUND BREAST LEFT TECHNIQUE: Ultrasound left breast focused area of concern. CLINICAL INFORMATION: MASTODYNIA FINDINGS: Ultrasound LEFT breast area of concern. Dense shadowing subareolar tissue compatible with gynecomastia. Comparison RIGHT side demonstrates similar- appearing shadowing subareolar tissue. No cystic or solid nodules to target for biopsy. No other suspicious findings. Findings appear benign. MM/MM diag LT tomosynthesis [id number] IMPRESSION: DENSITY: There are scattered areas of fibroglandular density. BI-RADS: 2 - Benign. FOLLOW UP: See Report
== END 2025-03-16 09:21 | disposition home or self-care (01) ==
LOC: RAD 09:23
PROVIDERS: PCP Nurse Practitioner Family; Visit Provider Nurse Practitioner Adult Health
DX: N64.4 Mastodynia (principal)
CPT/HCPCS: 76642; 77061; G0279